=== PATIENT | male | born 1965 | race Caucasian/White ===

== ENCOUNTER 2024-06-28 10:02 | Outpatient (AMB) | payer OTHER, SELFPAY ==
--- NOTE | 2024-06-28 10:06 | MHC.PC.OV ---
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 ?? Prior PCP:? dr Cabrera Last office visit/CPE:?> 2 yrs Acute issue(s):? BPs high at dentist ?? PMHx:? Moles, Psoriasis. & ? psoriatic arthritis flare x 1 30 yrs ago. SurgHx:? None FHx:? Dad: HTN HLD. Mom: Breast CA, HLD. SocHx:? 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 Nonsmoker, EtOH 1-2 dr 1-2 x a month. No drugs HPI Comments History of Present Illness Details Documentation assistance for Jeremy Lindo MD, was provided by Jake Vee,? [employer] on 06/28/2024 at 10:38 AM EST. I, Dr. Lindo, have read, observed, and verified documentation. PFSH Medical History (Updated 06/28/24 @ 10:39 by Jeremy Lindo MD) Seasonal allergies Psoriasis Surgical History (Updated 06/28/24 @ 10:10 by Raisa Hyde CMA) [place] teeth extracted Family History (Updated 06/28/24 @ 10:23 by Raisa Hyde CMA) Father High blood pressure High cholesterol Mother High cholesterol Breast cancer Maternal Grandmother Breast cancer Paternal Grandmother Diabetes Maternal Grandfather Diabetes Social History Housing: House Patient Tobacco Use Status: Never used Tobacco e-Cigarette/Vaping Use: Never Used Second Hand Smoke Exposure: No service: No Current occupational status: employed 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 1. Little interest or pleasure in doing things: not at all 2. Feeling down, depressed, or hopeless: not at all 3. Trouble falling or staying asleep, or sleeping too much: not at all 4. Feeling tired or having little energy: several days 5. Poor appetite or overeating: not at all 6. Feeling bad about yourself - or that you are a failure or have let yourself or your family down: not at all 7. Trouble concentrating on things, such as reading the newspaper or watching television: not at all 8. Moving or speaking so slowly that other people could have noticed. Or the opposite - being so fidgety or restless that you have been moving around a lot more than usual: not at all 9. Thoughts that you would be better off or of hurting yourself in some way: not at all Total score: 1 Depression Screening Interpretation: Negative Depression Screening Done: Yes Source: Developed by Drs. Selvin Wasserman, Radha Villalba, Arcenio Hunter and colleagues, with an educational baylee from [email or web address]. Thrive Questionnaire I am a: Patient What is your living situation today?: I have a steady place to live Within the past 12 months, did the food you bought not last and you didn't have the money to get more?: Never true Within the past 12 months, did you worry whether your food would run out before you got money to buy more?: Never true Do you have trouble paying for medicines?: No Do you have trouble getting transportation to medical appointments?: No Do you have trouble paying your heating and electricity bill?: No Do you have trouble taking care of your child, family member or friend?: No Do you have trouble with day-to-day activities such as bathing, preparing meals, shopping, managing finances, etc.?: No Are you currently unemployed and looking for a job?: No Are you interested in more education?: No Please select the resources that you would like help with: None Currently or been in a relationship where the following occur: No concerns reported THRIVE Score: 0 AUDIT C Alcohol Use Questionnaire (AUDIT-C) 1. How often do you have a drink containing alcohol?: Monthly or less 2. How many drinks containing alcohol do you have on a typical day when you are drinking?: 1 or 2 3. How often do you have six or more drinks on one occasion?: Never Total Score: 1 YAZMIN-7 AMB Questionnaire YAZMIN-7 Feeling nervous, anxious, or on edge: 1 = Several days Not being able to stop or control worryin = Not at all Worrying too much about different things: 1 = Several days Trouble relaxin = Not at all Being so restless that it is hard to sit still: 0 = Not at all Becoming easily annoyed or irritable: 0 = Not at all Feeling afraid as if something awful might happen: 0 = Not at all Total YAZMIN-7 score (0-4 normal; 5-9 mild; 10-14 moderate; 15-21 severe): 2 Source: Developed by Drs. Selvin Wasserman, Radha Villalba, Arcenio Hunter and colleagues, with an educational baylee from [email or web address]. Review of Systems Const Denies chills, Denies fatigue, Denies fever(s), Denies headache(s) and Denies weakness ENT Denies dizziness and Denies headache(s) Card Denies chest pain, Denies lightheadedness, Denies dyspnea and Denies other (Palpitations) Resp Denies cough, Denies dyspnea, Denies wheezing and Denies other ( shortness of breath) Musc Denies numbness and Denies tingling Neuro Denies dizziness, Denies headache(s), Denies numbness, Denies tingling, Denies paresthesias and Denies weakness Psych Denies anxiety and Denies depression Endo Denies fatigue Aller/Immun Denies wheezing Physical exam (Primary Care) Vital Signs: Last Vital Signs Temp 97.5 F 06/28/24 10:11 Pulse 83 06/28/24 10:11 BP 150/100 H 06/28/24 10:11 Pulse Ox 97 06/28/24 10:11 Oxygen Delivery Method Room Air 06/28/24 10:11 BMI result Body Mass Index 32.0 Tobacco/Smoking Status: Tobacco use Status Tobacco use date assessed 06/28/24 06/28/24 10:19 Patient Tobacco Use Status Never used Tobacco 06/28/24 10:19 e-Cigarette/Vaping Use Never Used 06/28/24 10:19 PHQ-9: PHQ-9 Score PHQ-9: Total score 1 06/28/24 10:20 Depression Screening Interpretation: Negative Currently or been in a relationship where the following occur: No concerns reported Const General: no acute distress and well developed Nutritional Appearance: well nourished Orientation/consciousness: patient oriented x3 HENMT Head: Yes normocephalic and Yes atraumatic Eyes General: appearance normal, both eyes and all related structures Pupils: Equal, round and reactive pupils present EOM: EOMs intact bilaterally Resp Effort & Inspection: normal respiratory effort Auscultation: clear to auscultation bilaterally Cardio Rate: regular rate Rhythm: regular rhythm Heart sounds: S1 normal heart sound present, S2 normal heart sound present, no gallops, no murmurs and no rubs Neuro General: patient oriented x3 and gait normal Cranial nerves: Yes Equal, round and reactive pupils present Psych Affect: normal affect Coding Level of Care Code New Pt Level 3 (24654) Diagnoses Hypertension I10 Environmental allergies Z91.09 Laboratory exam ordered as part of routine general medical examination Z00.00 Assessment & Plan Assessment & Plan (1) Hypertension: Code(s): I10 - Essential (primary) hypertension Category: Medical Plan: Systolic?Blood?pressures?at?home?consistently in?the?140s. Start?losartan Encouraged?a?diet?lower?in?sodium?salt.??Encouraged?weight?loss?and?exercise. Encouraged?good?sleep?have?not (2) Environmental allergies: Code(s): Z91.09 - Other allergy status, other than to drugs and biological substances Category: Medical Plan: Uses?Laquita?and?plans?to?switch?to?Xyzal Advise?using?mask?when?doing?yd?work. (3) Laboratory exam ordered as part of routine general medical examination: Code(s): Z00.00 - Encounter for general adult medical examination without abnormal findings Category: Medical Plan: Check?labs Orders: Orders Prostate Specific Antigen Scr Today Z12.5 - Encounter for screening for malignant neoplasm of prostate Microalbumin, Random (w Creat) Today I10 - Essential (primary) hypertension UA and rflx microscopic Today Z00.00 - Encounter for general adult medical examination without abnormal findings Complete Blood Count Auto Diff Today Z00.00 - Encounter for general adult medical examination without abnormal findings Comprehensive [place]. Panel Fast Today Z00.00 - Encounter for general adult medical examination without abnormal findings Lipid Panel Today Z00.00 - Encounter for general adult medical examination without abnormal findings Medications: New losartan 50 mg PO DAILY 90 days 90 tabs 2RF
[2024-06-28 10:11] VITALS: BP 150/100; PULSE 83; TEMP 36.4; O2SAT 97; BMI 32.0
== END 2024-06-28 10:37 | disposition home or self-care (01) ==
PROVIDERS: PCP Family Medicine; Visit Provider Family Medicine
DX: I10 Essential (primary) hypertension (principal); Z91.09 Other allergy status, other than to drugs and biological substances; Z00.00 Encounter for general adult medical examination without abnormal findings

== ENCOUNTER → 2024-06-28 10:02 | Outpatient (BNVA) | payer OTHER, SELFPAY | PROVIDERS: PCP Family Medicine; Visit Provider Family Medicine | DX: I10 Essential (primary) hypertension (principal); Z91.09 Other allergy status, other than to drugs and biological substances | CPT/HCPCS: 99202 ==

== ENCOUNTER 2024-07-19 08:06 | Outpatient (REF) | payer OTHER, SELFPAY ==
[2024-07-19 11:25] LABS: MANUAL DIFF FLAG NO
[2024-07-19 11:34] LABS: Basophils Percent Auto 0.5 % (0-2); Eosinophils Absolute Auto 0.2 X10*3/uL (0.0-0.4); Eosinophils Percent Auto 2.8 % (0-4); Hematocrit 45.3 % (42.0-52.0); Hemoglobin 15.6 g/dl (14.0-18.0); Imm Gran Abs Auto 0.02 X10*3/uL (0.00-0.03); Imm Gran Pct Auto 0.3 % (0.0-0.4); Lymphocytes Absolute Auto 2.2 X10*3/uL (1.2-4.9); Lymphocytes Percent Auto 35.6 % (20-40); Mean Corpuscular HGB Conc 34.4 g/dl (31.0-36.0); Mean Corpuscular Hemoglobin 31.1 pg (27.0-33.0); Mean Corpuscular Volume 90.2 fL (80.0-98.0); Mean Platelet Volume 9.9 fL (9.4-12.4); Monocytes Absolute Auto 0.6 X10*3/uL (0.1-1.2); Monocytes Percent Auto 9.7 % (2-11); Neutrophils Absolute Auto 3.1 x10*3/uL (2.0-8.3); Neutrophils Percent Auto 51.1 % (45-73); Platelet Count 258 X10*3/uL (160-400); Red Blood Count 5.02 X10*6/uL (4.60-5.80); Red Cell Distribution Width 12.6 % (11.0-16.0); White Blood Count 6.1 X10*3/uL (4.8-10.8)
[2024-07-19 11:57] LABS: Alanine Aminotransferase 25 U/L (0-40); Albumin Level 4.3 g/dL (3.5-5.0); Alkaline Phosphatase 75 U/L (39-117); Anion Gap 11 (12-20); Aspartate Amino Transferase 25 U/L (5-37); Bilirubin Total 0.7 mg/dL (0.0-1.0); Blood Urea Nitrogen 17 mg/dL (9-16); Carbon Dioxide 25 mmol/L (22-29); Chloride 107 mmol/L (96-108); Cholesterol 249 mg/dL (<200); Estimated Glomerular Filt Rate > 60; Glucose Fasting 102 mg/dL (60-99); HDL Cholesterol 44 mg/dL (>40); LDL Cholesterol Calculated 166 mg/dL (<100); Potassium 4.4 mmol/L (3.3-5.1); Sodium 139 mmol/L (135-145); Total Protein 7.2 g/dL (6.5-8.0); Triglycerides 196 mg/dL (<150)
[2024-07-19 12:14] LABS: Prostate Specific Antigen Scr 1.18 ng/mL (<0.05-4.0)
== END 2024-07-19 08:07 | disposition home or self-care (01) ==
LOC: HO.WFDLDS 08:06
PROVIDERS: Visit Provider Family Medicine
DX: Z00.00 Encounter for general adult medical examination without abnormal findings (principal); Z12.5 Encounter for screening for malignant neoplasm of prostate
CPT/HCPCS: 36415; 80053; 80061; 84153; 85025

== ENCOUNTER 2024-10-25 07:51 | Outpatient (AMB) | payer OTHER, SELFPAY ==
--- NOTE | 2024-10-25 07:54 | MHC.PC.OV ---
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 atypical Moles, Psoriasis, , environmental allergies, HTN, Obesity SurgHx:? None FHx:? Dad: HTN HLD. Mom: Breast CA, HLD. SocHx:? 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 Nonsmoker, EtOH 1-2 dr 1-2 x a month. No drugs Health Maintenance: Tdap 2018 [place] age 51, [place] [facility] Normal, 10 year recall. * [facility] 07/2024 elevated lipid profile otherwise WNL Optho - wears glasses, last exam 2024 Skin- psoriasis and atypical moles Uses biotin for psoorisis Specialists: Derm annual visits History of Present Illness - The patient is a 59-year-old male presenting for a complete physical exam. - Psoriasis without medication except for biotin. - Essential hypertension controlled on losartan 50 mg daily. - IgM monoclonal gammopathy, history of inconclusive hematology assessments. No longer ff'd by Heme. No interest. - History of sleep study with non-definitive results for sleep apnea, no CPAP. Denies sx. - Seasonal allergies: uses Pataday and Xyzal; fatigue noted. Claritin and Laquita ineffective. - Left knee pain following trauma two months ago; resolved swelling and progressive improvement. Does admit to bilat knee pain that comes and goes. - Cholesterol management: last total cholesterol 249 mg/dL, LDL 166 mg/dL, HDL 44 mg/dL, triglycerides 196 mg/dL. - Normal colonoscopy at age 51. - Fasting glucose at 102 mg/dL. Past Surgical History - No history of surgical procedures. Family History - Family history of high cholesterol: both parents treated for hyperlipidemia. Social History - Patient is employed in [place]. - Engaged in weight management and dietary modifications for cholesterol control. - Experiences fatigue related to antihistamine usage. - He is active in yard work activities. Health Maintenance - Tdap vaccination received in 2018, up to date. - Colonoscopy at age 51, normal on a 10-year recall. - Encouraged lifestyle modifications for cholesterol management. - Repeat cholesterol and fasting glucose lab monitoring planned in six months. Review of Systems - General: Denies fatigue related to activities of daily living. - Cardiovascular: Denies chest pain, shortness of breath. Monitors home blood pressure. - Respiratory: Denies sleep apnea symptoms; allergy-related sinus issues. - Eyes/Ears/Nose/Throat: Reports allergies affecting eyes and sinuses; denies changes in breathing patterns. - Musculoskeletal: Reports knee pain post-trauma, denies joint swelling, redness. - Dermatological: Reports psoriasis, managed without medication. - Neurological: Denies changes in sleep patterns attributable to sleep apnea. - Endocrine: Denies recent changes in weight; managed fasting glucose levels. - Allergies: Reports environmental allergies, exacerbated in particular seasons. Physical Exam General: Well developed, well nourished, in no acute distress. Appears stated age. Head: Normocephalic, atraumatic. Eyes: Pupils are equal, round and reactive to light and accommodation. Conjunctivae are clear. Vision grossly normal. Ears: TMs clear AU, EACS WNL. Nose: Patent, without discharge. Patient reports sinus issues due to allergies. Neck: Supple, no adenopathy or thyromegaly. Breast: Edu on SBE Lungs: Clear to auscultation bilaterally. No rales, rhonchi or wheeze noted. Good air flow in all meyer. Heart: Regular rate and rhythm. No murmurs, click, rubs or gallops are noted. Abdomen: Bowel sounds present in all quadrants. The abdomen is soft, nontender, with no masses or organomegaly noted. No hernias are noted. : Deferred. Reviewed ASHLEIGH & recommendations for routine Pulses: Peripheral pulses are equal and palpable bilaterally. Extremities: No clubbing, cyanosis nor edema is noted. Crepitus with ROM bilat knees Neurologic: Gait and station normal. Cranial Nerves 2-12 intact. Motor strength grossly symmetrical and intact. No sensory loss. Balance normal. Skin: No rashes, ulcers, or lesions noted. Turgor is good. Skin color is good. Hair and nails are without abnormalities. Patient has psoriasis and atypical moles monitored by a grievance and appeals coordinator. Psych: Normal eye contact, affect and mood appropriate, and normal interactions. Patient is alert and appropriate to context. Results - Labs: Total cholesterol 249 mg/dL, LDL 166 mg/dL, triglycerides 196 mg/dL, HDL 44 mg/dL, fasting glucose 102 mg/dL. - Other tests: Colonoscopy normal at age 51. Discussion Notes I discussed the importance of continuing lifestyle modifications, including dietary changes and consistent exercise, to manage cholesterol levels and overall cardiovascular risk. We addressed the patient?s concerns regarding allergies and the potential side effects of current antihistamine medications. We reviewed current hypertension management and decided to continue with the present losartan dosage while monitoring home readings. We agreed on follow-up lab work in six months for blood lipids and fasting glucose to evaluate efficacy and reassess treatment options. The patient understands the current standing of his health status and is committed to ongoing lifestyle changes. Assessment and Plan 1. Essential Hypertension - Continue losartan 50 mg daily. - Home BP monitoring. 2. Hyperlipidemia - Maintain lifestyle changes for cholesterol control. - Repeat labs in six months. 3. IgM Monoclonal Gammopathy - Symptom monitoring only. 4. Seasonal Allergies - Use Pataday, Xyzal as needed. 5. Psoriasis - Dermatology follow-up as required. 6. Sleep Apnea - No CPAP. Monitor symptoms. 7. Knee Pain - Monitor symptoms. Imaging if worsens. Patient Instructions - Continue taking losartan for hypertension. - Monitor blood pressure at home. - Maintain dietary changes for better cholesterol. - Use prescribed allergy medication as needed. - Monitor knee pain; contact if issues worsen. - Follow up in six months for tests and review. Consent Patient was informed and verbally consented to the use of an ambient scribe for clinic note documentation during this visit. [facility] Medical History (Updated 10/25/24 @ 08:43 by Bee Thomas, [facility] Psoriasis Seasonal allergies Surgical History (Updated 10/25/24 @ 08:33 by Bee Thomas, [facility]) History of colonoscopy (~2017) [place] teeth extracted Family History (Updated 06/28/24 @ 10:23 by Raisa Hyde [facility]) Father High blood pressure High cholesterol Mother High cholesterol Breast cancer Maternal Grandmother Breast cancer Paternal Grandmother Diabetes Maternal Grandfather Diabetes Social History Housing: House Patient Tobacco Use Status: Never used Tobacco e-Cigarette/Vaping Use: Never Used Second Hand Smoke Exposure: No service: No Current occupational status: employed 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 Current occupational exposures/hazards: No Cognitive needs: No Hearing needs: No Vision needs: Yes Questionnaire Thrive Questionnaire Date Thrive assessed: 06/28/24 I am a: Patient What is your living situation today?: I have a steady place to live Within the past 12 months, did the food you bought not last and you didn't have the money to get more?: Never true Within the past 12 months, did you worry whether your food would run out before you got money to buy more?: Never true Do you have trouble paying for medicines?: No Do you have trouble getting transportation to medical appointments?: No Do you have trouble paying your heating and electricity bill?: No Do you have trouble taking care of your child, family member or friend?: No Do you have trouble with day-to-day activities such as bathing, preparing meals, shopping, managing finances, etc.?: No Are you currently unemployed and looking for a job?: No Are you interested in more education?: No Please select the resources that you would like help with: None Currently or been in a relationship where the following occur: No concerns reported THRIVE Score: 0 Physical exam (Primary Care) Vital Signs: Last Vital Signs Temp 97.3 F 10/25/24 08:00 Pulse 98 10/25/24 08:00 Resp 13 10/25/24 08:00 BP 130/88 10/25/24 08:19 Pulse Ox 97 10/25/24 08:00 Oxygen Delivery Method Room Air 10/25/24 08:00 BMI result Body Mass Index 32.4 BMI Assessment/Plan discussion: High BMI High, discussed plan: lifestyle Tobacco/Smoking Status: Tobacco use Status Tobacco use date assessed 10/25/24 10/25/24 07:58 Patient Tobacco Use Status Never used Tobacco 10/25/24 07:55 e-Cigarette/Vaping Use Never Used 10/25/24 07:55 Thrive Assessment: Date of Thrive Assessment Date Thrive assessed 06/28/24 10/25/24 07:55 Currently or been in a relationship where the following occur: No concerns reported Coding Level of Care Code Est Pt Prev Care 40-64y(27210) Diagnoses Encounter for general adult medical examination without abnormal findings Z00.00 Primary hypertension I10 Hypertension type: primary hypertension Moderate mixed hyperlipidemia not requiring statin therapy E78.2 Hyperlipidemia type: moderate mixed hyperlipidemia not requiring statin therapy Primary osteoarthritis of both knees M17.0 Osteoarthritis type: primary History of colonoscopy Z98.890 Assessment & Plan Assessment & Plan (1) Encounter for general adult medical examination without abnormal findings: Onset Date: ~10/2024 Code(s): Z00.00 - Encounter for general adult medical examination without abnormal findings Category: Medical (2) Hypertension: Code(s): I10 - Essential (primary) hypertension Category: Medical Qualifiers: Hypertension type: primary hypertension Qualified Code(s): I10 - Essential (primary) hypertension (3) HLD (hyperlipidemia): Code(s): E78.5 - Hyperlipidemia, unspecified Category: Medical Qualifiers: Hyperlipidemia type: moderate mixed hyperlipidemia not requiring statin therapy Qualified Code(s): E78.2 - Mixed hyperlipidemia (4) Osteoarthritis of knees, bilateral: Code(s): M17.0 - Bilateral primary osteoarthritis of knee Category: Medical Qualifiers: Osteoarthritis type: primary Qualified Code(s): M17.0 - Bilateral primary osteoarthritis of knee (5) History of colonoscopy: Onset Date: Code(s): Z98.890 - Other specified postprocedural states Category: Surgical Plan . Orders: Orders Lipid Panel 6 Months E78.5 - Hyperlipidemia, unspecified, I10 - Essential (primary) hypertension Comprehensive [place]. Panel Fast 6 Months E78.5 - Hyperlipidemia, unspecified, I10 - Essential (primary) hypertension Patient Instructions: Health screenings for men You should visit your health care provider regularly, even if you feel healthy. The purpose of these visits is to: Screen for medical issues Assess your risk for future medical problems Encourage a healthy lifestyle Update vaccinations and other preventive care services Help you get to know your provider in case of an illness Information Even if you feel fine, you should still see your provider for regular checkups. These visits can help you avoid problems in the future. For example, the only way to find out if you have high blood pressure is to have it checked regularly. High blood sugar and high cholesterol level also may not have any symptoms in the early stages. Simple blood tests can check for these conditions. There are specific times when you should see your provider or receive specific health screenings. The [place] Preventive Services Task Force publishes a list of recommended screenings. Below are screening guidelines for men ages 40 to 64. BLOOD PRESSURE SCREENING Have your blood pressure checked at least once every year. Watch for blood pressure screenings in your area. Ask your provider if you can stop in to have your blood pressure checked. Ask your provider if you need your blood pressure checked more often if: You have diabetes, heart disease, kidney problems, or are overweight or have certain other health conditions You have a first-degree relative with high blood pressure You are Black Your blood pressure top number is from 120 to 129 mm Hg, or the bottom number is from 70 to 79 mm Hg If the top number is 130 mm Hg or greater or the bottom number is 80 mm Hg or greater, this is considered stage 1 hypertension. Schedule an appointment with your provider to learn how you can lower your blood pressure. Effects of age on blood pressure CHOLESTEROL SCREENING Cholesterol screening should begin at age 35 for men with no known risk factors for coronary heart disease. Repeat cholesterol screening should take place: Every 5 years for men with normal cholesterol levels More often if changes occur in lifestyle (including weight gain and diet) More often if you have diabetes, heart disease, kidney problems, or certain other conditions COLORECTAL CANCER SCREENING If you are under age 45, talk to your provider about getting screened. You may need to be screened if you have a strong family history of colon cancer or polyps. Screening may also be considered if you have risk factors such as a history of inflammatory bowel disease or polyps. If you are age 45 to 75, you should be screened for colorectal cancer. There are several screening tests available: A stool-based fecal occult blood (gFOBT) or fecal immunochemical test (FIT) every year A stool sDNA test every 1 to 3 years Flexible sigmoidoscopy every 5 years or every 10 years with stool testing FIT done every year CT colonography (virtual colonoscopy) every 5 years Colonoscopy every 10 years You may need a colonoscopy more often if you have risk factors for colorectal cancer, such as: Ulcerative colitis A personal or family history of colorectal cancer A history of growths in your colon called adenomatous polyps DENTAL EXAM Go to the dentist once or twice every year for an exam and cleaning. Your dentist will evaluate if you have a need for more frequent visits. DIABETES SCREENING All adults who do not have risk factors for diabetes should be screened starting at age 35 and repeated every 3 years. If you have other risk factors for diabetes, such as a first degree relative with diabetes, overweight or obesity, high blood pressure, prediabetes, or a history of heart disease, you may be tested more often. If you are overweight and have other risk factors, such as high blood pressure and are planning to become , screening is recommended. EYE EXAM Have an eye exam every 2 to 4 years ages 40 to 54 and every 1 to 3 years ages 55 to 64. Your provider may recommend more frequent eye exams if you have vision problems or glaucoma risk. Have an eye exam that includes an examination of your retina (back of your eye) at least every year if you have diabetes. IMMUNIZATIONS Commonly needed vaccines include: Flu shot: get one every year COVID-19 vaccine: ask your provider what is best for you Tetanus-diphtheria and acellular pertussis (Tdap) vaccine: have as one of your tetanus-diphtheria vaccines if you did not receive it as an adolescent Tetanus-diphtheria: have a booster (or Tdap) every 10 years Varicella vaccine: receive 2 doses if you never had chickenpox or the varicella vaccine and were born in 1979 or after Hepatitis B vaccine: receive 2, 3, or 4 doses, depending on your exact circumstances, if you did not receive these as a child or adolescent, until age 59 Shingles (herpes zoster) vaccine: at or after age 50 Ask your provider if you should receive other immunizations, especially if you have certain medical conditions, such as diabetes or are at increased risk for some diseases such as pneumonia. INFECTIOUS DISEASE SCREENING Screening for hepatitis C: all adults ages 18 to 79 should get a one-time test for hepatitis C. Screening for human immunodeficiency virus (HIV): all people ages 15 to 65 should get a one-time test for HIV. Depending on your lifestyle and medical history, you may need to be screened for infections such as syphilis, chlamydia, and other infections. LUNG CANCER SCREENING You should have an annual screening for lung cancer with low-dose computed tomography (LDCT) if: You are age 50 to 80 years AND You have a 20 pack-year smoking history AND You currently smoke or have quit within the past 15 years OSTEOPOROSIS SCREENING If you are age 50 to 64 and have risk factors for osteoporosis, you should discuss screening with your provider. Risk factors can include long-term steroid use, low body weight, smoking, heavy alcohol use, having a fracture after age 50, or a family history of hip fracture or osteoporosis. Osteoporosis PHYSICAL EXAM All adults should visit their provider from time to time, even if they are healthy. The purpose of these visits is to: Screen for diseases Assess risk of future medical problems Encourage a healthy lifestyle Update vaccinations and other preventive care services Maintain a relationship with a provider in case of an illness Your height, weight, and body mass index (BMI) should be checked at every exam. During your exam, your provider may ask you about: Depression and anxiety Diet and exercise Alcohol and tobacco use Safety, such as use of seat belts and smoke detectors Your medicines and risk for interactions PROSTATE CANCER SCREENING If you're 55 through 69 years old, before having the test, talk to your provider about the pros and cons of having a PSA test. Ask about: Whether screening decreases your chance of dying from prostate cancer. Whether there is any harm from prostate cancer screening, such as side effects from testing or overtreatment of cancer when discovered. Whether you have a higher risk of prostate cancer than others. If you are age 55 or younger, screening is not generally recommended. You should talk with your provider about if you have a higher risk for prostate cancer. Risk factors include: Having a family history of prostate cancer (especially a brother or father) Being If you choose to be tested, the PSA blood test is repeated over time (yearly or less often), though the best frequency is not known. Prostate examinations are no longer routinely done on men with no symptoms. Prostate cancer SKIN EXAM Your provider may check your skin for signs of skin cancer, especially if you're at high risk. People at high risk include those who have had skin cancer before, have close relatives with skin cancer, or have a weakened immune system. TESTICULAR EXAM The US Preventive Services Task Force (USPSTF) now recommends against performing testicular self-exams. Doing testicular self-exams has been shown to have little to no benefit.
[2024-10-25 08:00] VITALS: BP 150/80; PULSE 98; RESP 13; TEMP 36.3; O2SAT 97; BMI 32.4
[2024-10-25 08:19] VITALS: BP 130/88
== END 2024-10-25 08:36 | disposition home or self-care (01) ==
PROVIDERS: PCP Family Medicine; Visit Provider Nurse Practitioner Family
DX: Z00.00 Encounter for general adult medical examination without abnormal findings (principal); I10 Essential (primary) hypertension; E78.2 Mixed hyperlipidemia; M17.0 Bilateral primary osteoarthritis of knee; Z98.890 Other specified postprocedural states

== ENCOUNTER → 2024-10-25 07:51 | Outpatient (BNVA) | payer OTHER, SELFPAY | PROVIDERS: PCP Family Medicine; Visit Provider Nurse Practitioner Family | DX: Z00.00 Encounter for general adult medical examination without abnormal findings (principal); L40.9 Psoriasis, unspecified; I10 Essential (primary) hypertension; E78.2 Mixed hyperlipidemia; G47.30 Sleep apnea, unspecified; M17.0 Bilateral primary osteoarthritis of knee; Z98.890 Other specified postprocedural states; Z91.09 Other allergy status, other than to drugs and biological substances | CPT/HCPCS: 99396 ==

== ENCOUNTER 2025-04-04 07:32 | Outpatient (REF) | payer OTHER, SELFPAY ==
--- OUTSIDE RECORDS SUMMARY | 2025-04-04 07:35 | XMS_ITS | Patient Health Record ---
Author Organization [facility] Address [address] [place] [id number] Care Team Providers Care It Trainee Name Role Phone Deborah Pandya, Ben Primary Care Provider Nimco rohan Raymond Jr Ji Unavailable Reason For Referral No Information Medications Medication SIG (Take, Route, Frequency, Duration) Notes Start Date End Date Status Atrovent Active Vitamin D Active Magnesium Active Lutein Active Turmeric Active Biotin Active Fish Oil Active Multi Vitamin/Minerals Active Colyte with Flavor Packs 240 GM As directed Orally Over the specified time.; Duration: 1 day(s) Active Social History Tobacco Use: Social History Observation Description Date Details (start date - stop date) Never Smoker NA - NA Tobacco Use/Smoking Question Answer Notes Patient is a nonsmoker Alcohol Screen Question Answer Notes Did you have a drink contain ing alcohol in the past year? Yes How often did you have a dri nk containing alcohol in the past year? Monthly or less (1 point) How many drinks did you have on a typical day when you were drinking in the past year? 1 or 2 drinks (0 point) How often did you have 6 or more drinks on one occasion in the past year? Never (0 point) Points 1 Interpretation Negative Problems Problem Type SNOMED Code ICD Code Onset Dates Problem Status W/U Status Risk Notes Problem Colon cancer screening (869404930) Colon cancer screening (Z12.11) Active confirmed Problem Pre-procedure evaluation check (805151108) Encounter for other preprocedural examination (Z01.818) Active confirmed Plan Of Treatment Future Test Test Name Order Date COLONOSCOPY 04/07/2017 Insurance Providers Payer Name Payer Address Payer Phone Subscriber Number Group Number Insured Name Patient Relationship to Insured Coverage Start Date Coverage End Date [facility] [address] [place] [phone] [id number] TERRY PALACIOS Self - patient is the insured Medical (General) History Medical History History ICD Code environmental allergies
[2025-04-04 12:12] LABS: Alanine Aminotransferase 24 U/L (0-40); Albumin Level 4.4 g/dL (3.5-5.0); Alkaline Phosphatase 69 U/L (39-117); Anion Gap 10 (12-20); Aspartate Amino Transferase 26 U/L (5-37); Blood Urea Nitrogen 16 mg/dL (9-16); Calcium 9.0 mg/dL (8.4-10.2); Carbon Dioxide 26 mmol/L (22-29); Chloride 109 mmol/L (96-108); Cholesterol 235 mg/dL (<200); Estimated Glomerular Filt Rate > 60; HDL Cholesterol 36 mg/dL (>40); Potassium 4.4 mmol/L (3.3-5.1); Sodium 141 mmol/L (135-145); Total Protein 6.6 g/dL (6.5-8.0); Triglycerides 176 mg/dL (<150)
== END 2025-04-04 07:33 | disposition home or self-care (01) ==
LOC: HO.WFDLDS 07:32
PROVIDERS: Visit Provider Nurse Practitioner Family
DX: I10 Essential (primary) hypertension (principal); E78.5 Hyperlipidemia, unspecified
CPT/HCPCS: 36415; 80053; 80061

== ENCOUNTER 2025-04-11 07:00 | Outpatient (REF) | payer OTHER, SELFPAY ==
[2025-04-11 11:58] LABS: Appearance Urine Clear; Glucose Urine UA Negative (Negative); PH 5.5 (5.0-9.0); Specific Gravity - Urine 1.020 (1.005-1.025)
[2025-04-11 12:34] LABS: Microalbum/Creatinine Ratio Ur 5.2 ug/mg cr (<30)
== END 2025-04-11 07:01 | disposition home or self-care (01) ==
LOC: HO.WFDLDS 07:00
PROVIDERS: Visit Provider Family Medicine
DX: Z00.00 Encounter for general adult medical examination without abnormal findings (principal)
CPT/HCPCS: 81003; 82043; 82570

== ENCOUNTER 2025-04-18 08:20 | Outpatient (AMB) | payer OTHER, SELFPAY ==
--- OUTSIDE RECORDS SUMMARY | 2025-04-18 08:30 | XMS_ITS | Patient Health Record ---
Author Organization [facility] Address [address] [place] [id number] Care Team Providers Care Yard Labor Supervisor Name Role Phone Deborah Pandya, Ben Primary Care Provider Nimco rohan Raymond Jr Ji Unavailable [phone] Reason For Referral No Information Medications Medication [...] Status Risk Notes Problem Colon cancer screening (774870504) Colon cancer screening (Z12.11) Active confirmed Problem Pre-procedure evaluation check (274045014) Encounter for other preprocedural examination (Z01.818) Active confirmed Plan Of Treatment Future Test Test Name Order Date COLONOSCOPY 04/07/2017 Insurance Providers Payer Name Payer Address Payer Phone Subscriber Number Group Number Insured Name Patient Relationship to Insured Coverage Start Date Coverage End Date [facility] [address] [place] [phone] [id number] TERRY PALACIOS Self - patient is the insured Medical (General) History Medical History History ICD Code environmental allergies
--- NOTE | 2025-04-18 08:35 | MHC.PC.OV ---
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 BP today 140/80, 91p. He is on losartan 50mg daily. Lipid panel drawn 04/04/25. Reviewed labs with pt. Triglycerides 176. TC 235. LDL 164. HDL low at 36. He notes he exercises 3-4 days a week. HPI Comments History of Present Illness Details Documentation assistance for Jeremy Lindo MD, was provided by Jake Vee, Screen Tender on 04/18/2025 at 8:58 AM EST. I, Dr. Lindo, have read, observed, and verified documentation. [facility] Medical History (Updated 10/25/24 @ 08:43 by ATUL Jordan-ART) Seasonal allergies Psoriasis Surgical History (Updated 10/25/24 @ 08:33 by ATUL Jordan-ART) History of colonoscopy (~2016) [place] teeth extracted Family History (Updated 06/28/24 @ 10:23 by JONAS Rodriguez) Father High blood pressure High cholesterol Mother High cholesterol Breast cancer Maternal Grandmother Breast cancer Paternal Grandmother Diabetes Maternal Grandfather Diabetes Social History Housing: House Patient Tobacco Use Status: Never used Tobacco e-Cigarette/Vaping Use: Never Used Second Hand Smoke Exposure: No service: No Current occupational status: employed 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 Current occupational exposures/hazards: No Cognitive needs: No Hearing needs: No Vision needs: Yes Questionnaire Thrive Questionnaire Date Thrive assessed: 06/28/24 I am a: Patient What is your living situation today?: I have a steady place to live Within the past 12 months, did the food you bought not last and you didn't have the money to get more?: Never true Within the past 12 months, did you worry whether your food would run out before you got money to buy more?: Never true Do you have trouble paying for medicines?: No Do you have trouble getting transportation to medical appointments?: No Do you have trouble paying your heating and electricity bill?: No Do you have trouble taking care of your child, family member or friend?: No Do you have trouble with day-to-day activities such as bathing, preparing meals, shopping, managing finances, etc.?: No Are you currently unemployed and looking for a job?: No Are you interested in more education?: No Please select the resources that you would like help with: None Currently or been in a relationship where the following occur: No concerns reported THRIVE Score: 0 Review of Systems Const Denies chills, Denies fatigue, Denies fever(s), Denies headache(s) and Denies weakness ENT Denies dizziness and Denies headache(s) Card Denies dyspnea Resp Denies cough, Denies dyspnea, Denies wheezing and Denies other (shortness of breath) Musc Denies numbness and Denies tingling Neuro Denies dizziness, Denies headache(s), Denies numbness, Denies tingling and Denies weakness Psych Denies anxiety and Denies depression Endo Denies fatigue Aller/Immun Denies wheezing Physical exam (Primary Care) Vital Signs: Last Vital Signs Temp 98.6 F 04/18/25 08:36 Pulse 91 04/18/25 08:36 Resp 16 04/18/25 08:36 BP 140/78 H 04/18/25 08:38 Pulse Ox 98 04/18/25 08:36 Oxygen Delivery Method Room Air 04/18/25 08:36 BMI result Body Mass Index 32.3 Tobacco/Smoking Status: Tobacco use Status Tobacco use date assessed 10/25/24 04/18/25 08:40 Patient Tobacco Use Status Never used Tobacco 04/18/25 08:40 e-Cigarette/Vaping Use Never Used 04/18/25 08:40 Thrive Assessment: Date of Thrive Assessment Date Thrive assessed 06/28/24 04/18/25 08:40 Currently or been in a relationship where the following occur: No concerns reported Const General: well developed; No acute distress Nutritional Appearance: well nourished Orientation/consciousness: patient oriented x3 HENMT Head: Yes normocephalic and Yes atraumatic Eyes General: appearance normal, both eyes and all related structures Pupils: Equal, round and reactive pupils present EOM: EOMs intact bilaterally Resp Effort & Inspection: normal respiratory effort Auscultation: clear to auscultation bilaterally Cardio Rate: regular rate Rhythm: regular rhythm Heart sounds: S1 normal heart sound present, S2 normal heart sound present, no gallops, no murmurs and no rubs Neuro General: patient oriented x3 and gait normal Cranial nerves: Yes Equal, round and reactive pupils present Psych Affect: normal affect Coding Level of Care Code Est Pt Level 3 (87429) Diagnoses Primary hypertension I10 Hypertension type: primary hypertension Moderate mixed hyperlipidemia not requiring statin therapy E78.2 Hyperlipidemia type: moderate mixed hyperlipidemia not requiring statin therapy Assessment & Plan Assessment & Plan (1) Hypertension: Code(s): I10 - Essential (primary) hypertension Category: Medical Qualifiers: Hypertension type: primary hypertension Qualified Code(s): I10 - Essential (primary) hypertension Plan: Blood pressure is too high. Goal is less than 140/90 Will change losartan 50 mg daily to losartan-hydrochlorothiazide 50/12.5 mg daily (2) HLD (hyperlipidemia): Code(s): E78.5 - Hyperlipidemia, unspecified Category: Medical Qualifiers: Hyperlipidemia type: moderate mixed hyperlipidemia not requiring statin therapy Qualified Code(s): E78.2 - Mixed hyperlipidemia Plan: LDL cholesterol is still too high Start atorvastatin 40 mg daily Work on diet low in saturated fats and cholesterol and work at ratio of [place] 3 fatty acids in diet Continue exercise and increase in possible Weight loss Orders: Orders Comprehensive [place]. Panel Fast Today E78.2 - Mixed hyperlipidemia, Z00.00 - Encounter for general adult medical examination without abnormal findings Lipid Panel Today E78.2 - Mixed hyperlipidemia, Z00.00 - Encounter for general adult medical examination without abnormal findings Medications: New losartan-hydrochlorothiazide 50-12.5 mg 1 tab PO DAILY 90 tabs 3RF 90 days atorvastatin (Lipitor) 40 mg PO BEDTIME 90 tabs 3RF 90 days Discontinued losartan Discontinued Reason: Duplicate 50 mg PO DAILY 90 days 90 tabs 1RF
[2025-04-18 08:36] VITALS: BP 140/80; PULSE 91; RESP 16; TEMP 37; O2SAT 98; BMI 32.3
[2025-04-18 08:38] VITALS: BP 140/78
== END 2025-04-18 09:02 | disposition home or self-care (01) ==
LOC: HO.HMCFM 08:21
PROVIDERS: PCP Family Medicine; Visit Provider Family Medicine
DX: I10 Essential (primary) hypertension (principal); E78.2 Mixed hyperlipidemia

== ENCOUNTER → 2025-04-18 08:20 | Outpatient (BNVA) | payer OTHER, SELFPAY | PROVIDERS: PCP Family Medicine; Visit Provider Family Medicine | DX: I10 Essential (primary) hypertension (principal); E78.2 Mixed hyperlipidemia | CPT/HCPCS: 99212 ==